=== PATIENT | male | born 1975 | race Hispanic/Latino ===

== ENCOUNTER 2019-06-11 09:56 | Emergency (ER) | payer OTHER ==
[2019-06-11] MEDS ORDERED: Ketorolac Tromethamine 30 MG/ML VIAL ONE (11:01)
--- NOTE | 2019-06-11 11:41 | RAD ---
RADIOGRAPH LEFT KNEE FOUR VIEWS: 06/11/2019 HISTORY: A 43-year-old male with left knee pain. FINDINGS: No fracture, dislocation, DJD, or any other osseous abnormality. IMPRESSION: Negative. POS: TPC
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
== END 2019-06-11 12:19 | disposition home or self-care (01) ==
LOC: ERS 09:56
DX: S39.012A Strain of muscle, fascia and tendon of lower back, initial encounter (principal); V43.52XA Car driver injured in collision with other type car in traffic accident, initial encounter
CPT/HCPCS: 72100; 96372; J1885

== ENCOUNTER 2020-02-25 21:37 | Emergency (ER) | payer OTHER ==
[2020-02-25] MEDS ORDERED: Ketorolac Tromethamine 30 MG/ML VIAL ONE (23:00)
[2020-02-25] MEDS ORDERED: Boostrix 0.5 ML VIAL ONE (23:02)
[2020-02-25] MEDS ORDERED: Lidocaine 1% PF 5 ML VIAL ONE (23:44)
[2020-02-26] MEDS ORDERED: Triple Antibiotic Oint 1 GM Packet ONE ×2 (00:08→00:15)
[2020-02-26] MEDS ORDERED: Lidocaine 1% PF 5 ML VIAL ONE (00:22)
--- NOTE | 2020-02-26 09:30 | RAD ---
RIGHT HAND 2ND DIGIT 3 VIEWS: HISTORY: Pain. FINDINGS: There is soft tissue laceration. No radiopaque foreign body. Preserved joint spaces. No fracture, cortical irregularity, or periosteal reaction. IMPRESSION: Soft tissue laceration. No radiopaque foreign body or fracture. POS: OFF
== END 2020-02-26 00:19 | disposition home or self-care (01) ==
LOC: ERS 21:37
DX: S61.210A Laceration without foreign body of right index finger without damage to nail, initial encounter (principal); W26.8XXA Contact with other sharp object(s), not elsewhere classified, initial encounter
CPT/HCPCS: 12001; 90471; 90715; 96372; J1885

== ENCOUNTER 2020-03-07 01:41 | Emergency (ER) | payer OTHER | END 2020-03-07 02:09 | disposition home or self-care (01) | LOC: ER/OP 01:41 | DX: S61.210D Laceration without foreign body of right index finger without damage to nail, subsequent encounter (principal) ==